=== PATIENT | male | born 1970 | race American Indian/Alaskan Native ===

== ENCOUNTER 2017-02-13 08:33 | Emergency (ER) | payer BC ==
[2017-02-13 08:52] VITALS: BP 206/137
[2017-02-13 09:24] LABS: Basophils % (Auto) 0.5 % (0.0-1.8); Hematocrit 38.4 % (35.5-45.6); Hemoglobin 12.5 gm/dl (11.8-15.2); Mean Corpuscular HGB Conc 33 % (32-34); Mean Corpuscular Hemoglobin 29 pg (28-32); Mean Corpuscular Volume 89 fl (84-94); Platelet Count 237 K/mm3 (140-440); Red Blood Count 4.31 M/mm3 (3.65-5.03); Red Cell Distribution Width 14.6 % (13.2-15.2); White Blood Count 6.5 K/mm3 (4.5-11.0)
[2017-02-13 09:52] LABS: Anion Gap 18 mmol/L; BUN/Creatinine Ratio 9; Blood Urea Nitrogen 14 mg/dL (9-20); Calcium 8.6 mg/dL (8.4-10.2); Carbon Dioxide 27 mmol/L (22-30); Chloride 100.7 mmol/L (98-107); Glucose 101 mg/dL (75-100); Potassium 3.4 mmol/L (3.6-5.0); Sodium 142 mmol/L (137-145)
== END 2017-02-13 11:05 | disposition left against medical advice (07) ==
LOC: ED 08:33
DX: R03.0 Elevated blood-pressure reading, without diagnosis of hypertension (principal); Z53.21 Procedure and treatment not carried out due to patient leaving prior to being seen by health care provider
CPT/HCPCS: 36415; 80048; 85025

== ENCOUNTER 2018-07-06 04:53 | Inpatient (IN) | payer SELFPAY ==
[2018-07-06] MEDS ORDERED: NORMODYNE IV ONE ×2 (05:48→05:49)
--- NOTE | 2018-07-06 07:18 | XRay Report ---
PROCEDURE: XR CHEST 1V AP TECHNIQUE: A portable upright view of the chest was submitted. HISTORY: hypertension COMPARISONS: None FINDINGS: The heart size and vascularity appear normal. The lungs are clear. The bones and soft tissues appear well maintained. IMPRESSION: No acute cardiopulmonary process.. This document is electronically signed by Girish Busby MD., July 06 2018 07:16:35 AM ET
[2018-07-06 07:30] LABS: Basophils % (Auto) 0.3 % (0.0-1.8); Eosinophils # (Auto) 0.1 K/mm3 (0.0-0.4); Eosinophils % (Auto) 0.9 % (0.0-4.3); Hematocrit 40.8 % (35.5-45.6); Hemoglobin 13.8 gm/dl (11.8-15.2); Lymphocytes # (Auto) 1.1 K/mm3 (1.2-5.4); Lymphocytes % (Auto) 12.8 % (13.4-35.0); Mean Corpuscular HGB Conc 34 % (32-34); Mean Corpuscular Volume 92 fl (84-94); Monocytes # (Auto) 0.7 K/mm3 (0.0-0.8); Monocytes % (Auto) 8.5 % (0.0-7.3); Platelet Count 267 K/mm3 (140-440); Red Blood Count 4.44 M/mm3 (3.65-5.03); Red Cell Distribution Width 14.5 % (13.2-15.2)
[2018-07-06 07:38] LABS: INR 0.98 (0.87-1.13)
[2018-07-06 07:39] LABS: Partial Thromboplastin Time 27.1 Sec. (24.2-36.6)
[2018-07-06 07:48] LABS: Calcium 9.3 mg/dL (8.4-10.2)
[2018-07-06 07:49] LABS: Creatine Kinase MB 3.4 ng/mL (0.0-4.0)
[2018-07-06 07:51] LABS: Alanine Aminotransferase 17 units/L (7-56); Albumin 4.5 g/dL (3.9-5)
[2018-07-06 07:53] LABS: Bilirubin,Direct < 0.2 mg/dL (0-0.2)
[2018-07-06] MEDS ORDERED: APRESOLINE IV ONE (07:58)
--- NOTE | 2018-07-06 08:03 | Emergency Department Report ---
ED General Adult HPI - General Chief complaint: High BP Stated complaint: THROAT CLOSING (HTN SYMPTOMS) Time Seen by Provider: 07/06/18 06:59 Source: EMS Mode of arrival: Stretcher Limitations: No Limitations - History of Present Illness Initial comments: This is a 48 year old man with very limited medical literacy. He is relating his elevated blood pressure to his failure to drink enough water. Does not complain of polyuria or polydipsia. Apparently had some throat tightness had some weight but does not complain of that now. He had no focal neurological change nor any shortness of breath. He denied chest pain. He denies a history of renal insufficiency. He states he had previously been treated for hypertension. He is apparently not taking any medication at this point. He was previously prescribed lisinopril and hydrochlorothiazide. -: Gradual, month(s) Location: neck Radiation: non-radiation Severity scale (0 -10): 0 Quality: other Consistency: now resolved Improves with: none Worsens with: none Associated Symptoms: denies other symptoms Treatments Prior to Arrival: none - Related Data Previous Rx's Medication Instructions Recorded Last Taken Type Lisinopril [Zestril TAB] 20 mg PO QDAY #30 tablet 05/17/13 Unknown Rx hydroCHLOROthiazide 12.5 mg PO DAILY #30 capsule 05/17/13 Unknown Rx [Hydrochlorothiazide] methOCARBAMOL [Robaxin] 500 mg PO BID #14 tab 05/17/13 Unknown Rx oxyCODONE /ACETAMINOPHEN [Percocet 1 tab PO Q6HR PRN #14 tablet 05/17/13 Unknown Rx 5/325 mg] Allergies Allergy/AdvReac Type Severity Reaction Status Date / Time grass pollen Allergy Shortness Verified 07/06/18 05:06 of Breath ED Review of Systems ROS: Stated complaint: THROAT CLOSING (HTN SYMPTOMS) Other details as noted in HPI Constitutional: denies: chills, fever Eyes: denies: eye pain, eye discharge, vision change ENT: denies: ear pain, throat pain Respiratory: denies: cough, shortness of breath, wheezing Cardiovascular: denies: chest pain, palpitations Endocrine: no symptoms reported Gastrointestinal: denies: abdominal pain, nausea, diarrhea Genitourinary: denies: urgency, dysuria Musculoskeletal: as per HPI. denies: back pain, joint swelling, arthralgia Skin: denies: rash, lesions Neurological: denies: headache, weakness, paresthesias Psychiatric: denies: anxiety, depression Hematological/Lymphatic: denies: easy bleeding, easy bruising ED Past Medical Hx - Past Medical History Hx Hypertension: Yes Additional medical history: Medical noncompliance - Social History Smoking Status: Never Smoker Substance Use Type: None - Medications Home Medications: Home Medications Medication Instructions Recorded Confirmed Last Taken Type Lisinopril [Zestril TAB] 20 mg PO QDAY #30 tablet 05/17/13 Unknown Rx hydroCHLOROthiazide 12.5 mg PO DAILY #30 capsule 05/17/13 Unknown Rx [Hydrochlorothiazide] methOCARBAMOL [Robaxin] 500 mg PO BID #14 tab 05/17/13 Unknown Rx oxyCODONE /ACETAMINOPHEN [Percocet 1 tab PO Q6HR PRN #14 tablet 05/17/13 Unknown Rx 5/325 mg] ED Physical Exam - General Limitations: No Limitations General appearance: alert, in no apparent distress - Head Head exam: Present: atraumatic, normocephalic - Eye Eye exam: Present: normal appearance, PERRL, EOMI. Absent: scleral icterus - ENT ENT exam: Present: mucous membranes moist - Neck Neck exam: Present: normal inspection, full ROM. Absent: tenderness, meningismus, lymphadenopathy, thyromegaly - Respiratory Respiratory exam: Present: normal lung sounds bilaterally. Absent: respiratory distress - Cardiovascular Cardiovascular Exam: Present: regular rate, normal rhythm. Absent: systolic murmur, diastolic murmur, rubs, gallop - GI/Abdominal GI/Abdominal exam: Present: soft, normal bowel sounds. Absent: distended, tenderness, guarding, rebound, rigid - Rectal Rectal exam: Present: deferred - Extremities Exam Extremities exam: Present: normal inspection - Back Exam Back exam: Present: normal inspection - Neurological Exam Neurological exam: Present: alert, oriented X3, CN II-XII intact. Absent: motor sensory deficit - Psychiatric Psychiatric exam: Present: normal affect, normal mood - Skin Skin exam: Present: warm, dry, intact, normal color. Absent: rash ED Course Vital Signs 07/06/18 07/06/18 07/06/18 05:09 05:12 05:30 Temperature 97.2 F L Pulse Rate 92 H 91 H Respiratory 18 18 24 Rate Blood Pressure 194/143 Blood Pressure 202/143 [Left] O2 Sat by Pulse 97 97 97 Oximetry 07/06/18 07/06/18 07/06/18 05:44 06:00 06:05 Temperature Pulse Rate 86 81 80 Respiratory 16 Rate Blood Pressure 189/134 194/143 Blood Pressure 194/143 [Left] O2 Sat by Pulse 99 Oximetry 07/06/18 07/06/18 06:30 07:00 Temperature Pulse Rate 80 76 Respiratory 15 20 Rate Blood Pressure 195/137 216/149 Blood Pressure [Left] O2 Sat by Pulse 98 98 Oximetry - Reevaluation(s) Reevaluation #1: resting comfortably and asymptomatic even with a systolic blood pressure in the 150s. He will be given additional blood pressure management here in the emergency department. I do not think he will likely require a drip. His blood pressure will be further monitored. He is admitted by Dr. Glover to the hospitalist service. 07/06/18 08:05 ED Medical Decision Making - Lab Data Result diagrams: 07/06/18 07:12 07/06/18 07:12 Laboratory Results - last 24 hr 07/06/18 07/06/18 07/06/18 07:12 07:12 07:12 WBC 8.6 RBC 4.44 Hgb 13.8 Hct 40.8 MCV 92 MCH 31 MCHC 34 RDW 14.5 Plt Count 267 Lymph % (Auto) 12.8 L Andrews % (Auto) 8.5 H Eos % (Auto) 0.9 Baso % (Auto) 0.3 Lymph # 1.1 L Andrews # 0.7 Eos # 0.1 Baso # 0.0 Seg Neutrophils % 77.5 H Seg Neutrophils # 6.7 PT 13.6 INR 0.98 APTT 27.1 Sodium 139 Potassium 3.9 Chloride 96.8 L Carbon Dioxide 29 Anion Gap 17 BUN 17 Creatinine 1.9 H Estimated GFR 46 BUN/Creatinine Ratio 9 Glucose 112 H Calcium 9.3 Magnesium Total Bilirubin Direct Bilirubin AST ALT Alkaline Phosphatase Total Creatine Kinase CK-MB (CK-2) CK-MB (CK-2) Rel Index Troponin T NT-Pro-B Natriuret Pep Total Protein Albumin Albumin/Globulin Ratio 07/06/18 07:12 WBC RBC Hgb Hct MCV MCH MCHC RDW Plt Count Lymph % (Auto) Andrews % (Auto) Eos % (Auto) Baso % (Auto) Lymph # Andrews # Eos # Baso # Seg Neutrophils % Seg Neutrophils # PT INR APTT Sodium Potassium Chloride Carbon Dioxide Anion Gap BUN Creatinine Estimated GFR BUN/Creatinine Ratio Glucose Calcium Magnesium 1.90 Total Bilirubin 0.30 Direct Bilirubin < 0.2 AST 17 ALT 17 Alkaline Phosphatase 68 Total Creatine Kinase 249 H CK-MB (CK-2) 3.4 CK-MB (CK-2) Rel Index 1.3 Troponin T < 0.010 NT-Pro-B Natriuret Pep 39.87 Total Protein 8.4 H Albumin 4.5 Albumin/Globulin Ratio 1.2 - EKG Data -: EKG Interpreted by Me EKG shows normal: sinus rhythm, axis, intervals, QRS complexes, ST-T waves Rate: normal - EKG Data Interpretation: no acute changes 07/06/18 08:08 pending Critical care attestation.: If time is entered above; I have spent that time in minutes in the direct care of this critically ill patient, excluding procedure time. ED Disposition Clinical Impression: Accelerated hypertension, Renal insufficiency Disposition: OP ADMIT IP TO THIS HOSP Is pt being admited?: Yes Does the pt Need Aspirin: Yes Condition: Stable Instructions: Hypertension (ED) Time of Disposition: 08:08
[2018-07-06] MEDS ORDERED: ASPIRIN PO ONE (08:09)
--- NOTE | 2018-07-06 11:18 | Progress Note ---
Hospitalist Physical - Constitutional Vitals: Temp Pulse Resp BP Pulse Ox 97.2 F L 90 25 H 205/135 99 07/06/18 05:09 07/06/18 08:30 07/06/18 08:30 07/06/18 08:30 07/06/18 08:30 Results - Labs CBC & Chem 7: 07/06/18 07:12 07/06/18 07:12 Labs: Laboratory Last Values WBC 8.6 K/mm3 (4.5-11.0) 07/06/18 07:12 RBC 4.44 M/mm3 (3.65-5.03) 07/06/18 07:12 Hgb 13.8 gm/dl (11.8-15.2) 07/06/18 07:12 Hct 40.8 % (35.5-45.6) 07/06/18 07:12 MCV 92 fl (84-94) 07/06/18 07:12 MCH 31 pg (28-32) 07/06/18 07:12 MCHC 34 % (32-34) 07/06/18 07:12 RDW 14.5 % (13.2-15.2) 07/06/18 07:12 Plt Count 267 K/mm3 (140-440) 07/06/18 07:12 Lymph % (Auto) 12.8 % (13.4-35.0) L 07/06/18 07:12 [place] % (Auto) 8.5 % (0.0-7.3) H 07/06/18 07:12 Eos % (Auto) 0.9 % (0.0-4.3) 07/06/18 07:12 Baso % (Auto) 0.3 % (0.0-1.8) 07/06/18 07:12 Lymph # 1.1 K/mm3 (1.2-5.4) L 07/06/18 07:12 Rowan # 0.7 K/mm3 (0.0-0.8) 07/06/18 07:12 Eos # 0.1 K/mm3 (0.0-0.4) 07/06/18 07:12 Baso # 0.0 K/mm3 (0.0-0.1) 07/06/18 07:12 Seg Neutrophils % 77.5 % (40.0-70.0) H 07/06/18 07:12 Seg Neutrophils # 6.7 K/mm3 (1.8-7.7) 07/06/18 07:12 PT 13.6 Sec. (12.2-14.9) 07/06/18 07:12 INR 0.98 (0.87-1.13) 07/06/18 07:12 APTT 27.1 Sec. (24.2-36.6) 07/06/18 07:12 Sodium 139 mmol/L (137-145) 07/06/18 07:12 Potassium 3.9 mmol/L (3.6-5.0) 07/06/18 07:12 Chloride 96.8 mmol/L (98-107) L 07/06/18 07:12 Carbon Dioxide 29 mmol/L (22-30) 07/06/18 07:12 Anion Gap 17 mmol/L 07/06/18 07:12 BUN 17 mg/dL (9-20) 07/06/18 07:12 Creatinine 1.9 mg/dL (0.8-1.5) H 07/06/18 07:12 Estimated GFR 46 ml/min 07/06/18 07:12 BUN/Creatinine Ratio 9 % 07/06/18 07:12 Glucose 112 mg/dL (75-100) H 07/06/18 07:12 Calcium 9.3 mg/dL (8.4-10.2) 07/06/18 07:12 Magnesium 1.90 mg/dL (1.7-2.3) 07/06/18 07:12 Total Bilirubin 0.30 mg/dL (0.1-1.2) 07/06/18 07:12 Direct Bilirubin < 0.2 mg/dL (0-0.2) 07/06/18 07:12 AST 17 units/L (5-40) 07/06/18 07:12 ALT 17 units/L (7-56) 07/06/18 07:12 Alkaline Phosphatase 68 units/L (35-129) 07/06/18 07:12 Total Creatine Kinase 249 units/L (55-170) H 07/06/18 07:12 CK-MB (CK-2) 3.4 ng/mL (0.0-4.0) 07/06/18 07:12 CK-MB (CK-2) Rel Index 1.3 (0-4) 07/06/18 07:12 Troponin T < 0.010 ng/mL (0.00-0.029) 07/06/18 07:12 NT-Pro-B Natriuret Pep 39.87 pg/mL (0-450) 07/06/18 07:12 Total Protein 8.4 g/dL (6.3-8.2) H 07/06/18 07:12 Albumin 4.5 g/dL (3.9-5) 07/06/18 07:12 Albumin/Globulin Ratio 1.2 % 07/06/18 07:12
--- NOTE | 2018-07-06 11:22 | History and Physical Report ---
History of Present Illness Date of examination: 07/06/18 Date of admission: 07/06/18 08:09 Chief complaint: Patient reported some throat tightness prior to admission but no complaints now. Patient denies any tongue swelling. No difficulty breathing. Patient apparently took previous medication of lisinopril. Patient has been noncompliant with his blood pressure medications. He denies any chest pain or shortness of breath. No headache or visual disturbances. Past History Past Medical History: hypertension Past Surgical History: No surgical history Social history: no significant social history Family history: no significant family history Medications and Allergies Allergies Allergy/AdvReac Type Severity Reaction Status Date / Time grass pollen Allergy Shortness Verified 07/06/18 05:06 of Breath Home Medications Medication Instructions Recorded Confirmed Last Taken Type Lisinopril [Zestril TAB] 20 mg PO QDAY #30 tablet 05/17/13 Unknown Rx hydroCHLOROthiazide 12.5 mg PO DAILY #30 capsule 05/17/13 Unknown Rx [Hydrochlorothiazide] methOCARBAMOL [Robaxin] 500 mg PO BID #14 tab 05/17/13 Unknown Rx oxyCODONE /ACETAMINOPHEN [Percocet 1 tab PO Q6HR PRN #14 tablet 05/17/13 Unknown Rx 5/325 mg] Active Meds: Active Medications Labetalol HCl (Normodyne) 400 mg PO TID BRANDT Review of Systems All systems: negative Exam - Constitutional Vitals: Temp Pulse Resp BP Pulse Ox 97.2 F L 90 25 H 205/135 99 07/06/18 05:09 07/06/18 08:30 07/06/18 08:30 07/06/18 08:30 07/06/18 08:30 General appearance: Present: no acute distress, well-nourished - EENT Eyes: Present: PERRL ENT: hearing intact, clear oral mucosa - Neck Neck: Present: supple, normal ROM - Respiratory Respiratory effort: normal Respiratory: bilateral: CTA - Cardiovascular Heart Sounds: Present: S1 & S2. Absent: rub, click - Extremities Extremities: pulses symmetrical, No edema Peripheral Pulses: within normal limits - Abdominal General gastrointestinal: Present: soft, non-tender, non-distended, normal bowel sounds Male genitourinary: Present: normal - Integumentary Integumentary: Present: clear, warm, dry - Musculoskeletal Musculoskeletal: gait normal, strength equal bilaterally - Psychiatric Psychiatric: appropriate mood/affect, intact judgment & insight - Neurologic Neurologic: CNII-XII intact, moves all extremities Results - Labs CBC & Chem 7: 07/06/18 07:12 07/06/18 07:12 Labs: Laboratory Last Values WBC 8.6 K/mm3 (4.5-11.0) 07/06/18 07:12 RBC 4.44 M/mm3 (3.65-5.03) 07/06/18 07:12 Hgb 13.8 gm/dl (11.8-15.2) 07/06/18 07:12 Hct 40.8 % (35.5-45.6) 07/06/18 07:12 MCV 92 fl (84-94) 07/06/18 07:12 MCH 31 pg (28-32) 07/06/18 07:12 MCHC 34 % (32-34) 07/06/18 07:12 RDW 14.5 % (13.2-15.2) 07/06/18 07:12 Plt Count 267 K/mm3 (140-440) 07/06/18 07:12 Lymph % (Auto) 12.8 % (13.4-35.0) L 07/06/18 07:12 [place] % (Auto) 8.5 % (0.0-7.3) H 07/06/18 07:12 Eos % (Auto) 0.9 % (0.0-4.3) 07/06/18 07:12 Baso % (Auto) 0.3 % (0.0-1.8) 07/06/18 07:12 Lymph # 1.1 K/mm3 (1.2-5.4) L 07/06/18 07:12 [place] # 0.7 K/mm3 (0.0-0.8) 07/06/18 07:12 Eos # 0.1 K/mm3 (0.0-0.4) 07/06/18 07:12 Baso # 0.0 K/mm3 (0.0-0.1) 07/06/18 07:12 Seg Neutrophils % 77.5 % (40.0-70.0) H 07/06/18 07:12 Seg Neutrophils # 6.7 K/mm3 (1.8-7.7) 07/06/18 07:12 PT 13.6 Sec. (12.2-14.9) 07/06/18 07:12 INR 0.98 (0.87-1.13) 07/06/18 07:12 APTT 27.1 Sec. (24.2-36.6) 07/06/18 07:12 Sodium 139 mmol/L (137-145) 07/06/18 07:12 Potassium 3.9 mmol/L (3.6-5.0) 07/06/18 07:12 Chloride 96.8 mmol/L (98-107) L 07/06/18 07:12 Carbon Dioxide 29 mmol/L (22-30) 07/06/18 07:12 Anion Gap 17 mmol/L 07/06/18 07:12 BUN 17 mg/dL (9-20) 07/06/18 07:12 Creatinine 1.9 mg/dL (0.8-1.5) H 07/06/18 07:12 Estimated GFR 46 ml/min 07/06/18 07:12 BUN/Creatinine Ratio 9 % 07/06/18 07:12 Glucose 112 mg/dL (75-100) H 07/06/18 07:12 Calcium 9.3 mg/dL (8.4-10.2) 07/06/18 07:12 Magnesium 1.90 mg/dL (1.7-2.3) 07/06/18 07:12 Total Bilirubin 0.30 mg/dL (0.1-1.2) 07/06/18 07:12 Direct Bilirubin < 0.2 mg/dL (0-0.2) 07/06/18 07:12 AST 17 units/L (5-40) 07/06/18 07:12 ALT 17 units/L (7-56) 07/06/18 07:12 Alkaline Phosphatase 68 units/L (35-129) 07/06/18 07:12 Total Creatine Kinase 249 units/L (55-170) H 07/06/18 07:12 CK-MB (CK-2) 3.4 ng/mL (0.0-4.0) 07/06/18 07:12 CK-MB (CK-2) Rel Index 1.3 (0-4) 07/06/18 07:12 Troponin T < 0.010 ng/mL (0.00-0.029) 07/06/18 07:12 NT-Pro-B Natriuret Pep 39.87 pg/mL (0-450) 07/06/18 07:12 Total Protein 8.4 g/dL (6.3-8.2) H 07/06/18 07:12 Albumin 4.5 g/dL (3.9-5) 07/06/18 07:12 Albumin/Globulin Ratio 1.2 % 07/06/18 07:12 Assessment and Plan Assessment and plan: Accelerated hypertension. We will start labetalol. We'll hold on AMITA inhibitor given the presenting complaint of throat tightness.? Angioedema. Chronic kidney disease. Patient with a creatinine of 1.05 February 2017. Patient appears to be at his baseline. Recheck BMP in the morning.
[2018-07-06 11:29] VITALS: BP 182/118
[2018-07-06 12:44] LABS: Bilirubin,Urine NEG (Negative); Blood,Urine NEG (Negative); Color,Urine Straw (Yellow); Protein,Urine <15 mg/dL mg/dL (Negative); Urobilinogen,Urine < 2.0 mg/dL (<2.0); WBC,Urine < 1.0 /HPF (0.0-6.0)
[2018-07-06 12:52] LABS: Amphetamine Screen,Urine PRESUMPTIVE NEGATIVE; Benzodiazepines Screen,Urine PRESUMPTIVE NEGATIVE; Cannabinoid Screen,Urine PRESUMPTIVE NEGATIVE; Cocaine Screen,Urine PRESUMPTIVE NEGATIVE; Methadone Screen,Urine PRESUMPTIVE NEGATIVE; Opiate Screen,Urine PRESUMPTIVE NEGATIVE
[2018-07-06] MEDS ORDERED: AFLURIA QUAD 2018-2019 SYRINGE IM ONE (14:00)
[2018-07-06] MEDS ORDERED: NORMODYNE PO SCH (14:00)
[2018-07-06] MEDS ORDERED: SODIUM CHLORIDE FLUSH SYRINGE 10 ML IV PRN (14:48)
[2018-07-06] MEDS ORDERED: ZOFRAN IV PRN (14:48)
[2018-07-06] MEDS ORDERED: TYLENOL PO PRN (14:48)
[2018-07-06] MEDS ORDERED: CARDIZEM PO SCH (18:00)
[2018-07-06] MEDS ORDERED: SODIUM CHLORIDE FLUSH SYRINGE 10 ML IV SCH (22:00)
[2018-07-07] MEDS ORDERED: HCTZ PO SCH (10:00)
--- NOTE | 2018-07-15 09:56 | Addendum Note ---
- Addendum Date: 08/04/18 Note: Unfortunately, the patient left AMA. Nurse reports patient left the floor ambulatory in stable condition. No other details provided.
== END 2018-07-06 16:10 | disposition left against medical advice (07) | DRG 684 ==
LOC: ED 04:53 → 3A 08:09
PROVIDERS: ADMIT Hospitalist; ATTEND Hospitalist
DX: I12.9 Hypertensive chronic kidney disease with stage 1 through stage 4 chronic kidney disease, or unspecified chronic kidney disease (principal); N18.9 Chronic kidney disease, unspecified; Z91.048 Other nonmedicinal substance allergy status; Z53.21 Procedure and treatment not carried out due to patient leaving prior to being seen by health care provider
CPT/HCPCS: 36415; 71045; 80048; 80076; 80307; 81001; 82550; 82553; 83735; 83880; 84484; 85025; 85610; 85730; 90686; 93005; 93010; 96374; 96375; G0378; J0360

== ENCOUNTER 2021-10-18 17:52 | Emergency (ER) | payer SELFPAY ==
[2021-10-18] MEDS ORDERED: cloNIDine 0.1 MG TAB PO ONE (18:55)
--- NOTE | 2021-10-18 19:00 | Emergency Department Report ---
ED General Adult HPI - General Chief complaint: High BP Stated complaint: HTN/BLURR VISION Time Seen by Provider: 10/18/21 18:47 Source: EMS Mode of arrival: Ambulatory Limitations: No Limitations - History of Present Illness Initial comments: 51 yo M with no history of hypertension came in with blurry vision associated with elevated blood pressure at 190/106 at his primary doctor's office. For this reason patient was sent to the emergency room to be evaluated. Patient denies having any history of high blood pressure or take any prescribed medicat ion. Patient also reports posterior headache. No upper or lower limb weakness reported. No numbness or tingling reported. No other modifying or associated factors reported. Severity scale (0 -10): 8 - Related Data Previous Rx's Medication Instructions Recorded Last Taken Type hydroCHLOROthiazide 12.5 mg PO DAILY #30 capsule 05/17/13 Unknown Rx [Hydrochlorothiazide] methOCARBAMOL [Robaxin] 500 mg PO BID #14 tab 05/17/13 Unknown Rx oxyCODONE /ACETAMINOPHEN [Percocet 1 tab PO Q6HR PRN #14 tablet 05/17/13 Unknown Rx 5/325 mg] lisinopriL [Zestril TAB] 20 mg PO QDAY #30 tablet 10/18/21 Unknown Rx Allergies Allergy/AdvReac Type Severity Reaction Status Date / Time grass pollen Allergy Shortness Verified 10/18/21 18:22 of Breath ED Review of Systems ROS: Stated complaint: HTN/BLURR VISION Other details as noted in HPI Comment: All other systems reviewed and negative Eyes: vision change Cardiovascular: other (Hypertensive crisis) Neurological: headache (Posterior) ED Past Medical Hx - Past Medical History Previous Medical History?: Yes Hx Hypertension: Yes Additional medical history: Medical noncompliance - Social History Smoking Status: Never Smoker - Medications Home Medications: Home Medications Medication Instructions Recorded Confirmed Last Taken Type hydroCHLOROthiazide 12.5 mg PO DAILY #30 capsule 05/17/13 Unknown Rx [Hydrochlorothiazide] methOCARBAMOL [Robaxin] 500 mg PO BID #14 tab 05/17/13 Unknown Rx oxyCODONE /ACETAMINOPHEN [Percocet 1 tab PO Q6HR PRN #14 tablet 05/17/13 Unk nown Rx 5/325 mg] lisinopriL [Zestril TAB] 20 mg PO QDAY #30 tablet 10/18/21 Unknown Rx ED Physical Exam - General Limitations: No Limitations General appearance: alert, in no apparent distress - Head Head exam: Present: normal inspection - Eye Eye exam: Present: normal appearance, PERRL, EOMI Pupils: Present: normal accommodation - ENT ENT exam: Present: normal exam, normal orophraynx, mucous membranes dry - Neck Neck exam: Present: normal inspection, full ROM. Absent: tenderness, lymphadenopathy - Respiratory Respiratory exam: Present: normal lung sounds bilaterally. Absent: respiratory distress, accessory muscle use - Cardiovascular Cardiovascular Exam: Present: regular rate, normal rhythm, normal heart sounds - GI/Abdominal GI/Abdominal exam: Present: soft, normal bowel sounds. Absent: distended, tenderness - Extremities Exam Extremities exam: Present: normal inspection, full ROM, normal capillary refill. Absent: tenderness, pedal edema, joint swelling - Back Exam Back exam: Present: normal inspection, full ROM. Absent: tenderness, CVA tenderness (R), CVA tenderness (L) - Neurological Exam Neurological exam: Present: alert, oriented X3, CN II-XII intact - Psychiatric Psychiatric exam: Present: normal affect, normal mood - Skin Skin exam: Present: warm, normal color ED Course Vital Signs 10/18/21 10/18/21 10/18/21 18:17 19:37 19:39 Temperature 97.8 F Pulse Rate 95 H 93 H 93 H Respiratory 16 Rate Blood Pressure 254/126 254/162 Blood Pressure 249/160 [Left] O2 Sat by Pulse 100 Oximetry 10/18/21 20:25 Temperature Pulse Rate 90 Respiratory Rate Blood Pressure 223/159 Blood Pressure [Left] O2 Sat by Pulse Oximetry - Reevaluation(s) Reevaluation #1: 10/18/21 19:02 here with hypertensive crisis with blurred vision and posterior headache-- this is likely as a result or related to the hypertensive crisis but could not be limited to this alone so will rule out CVA by getting CT head, any cardiac involvement by checking troponin, BNP and CXR, will also check thyroid panel for any abnormality, and check routine labs that include CBC, CMP and UA and UDS for any infectious process or electrolyte abnormality-- For his hypertensive crisis with noted blood pressure at 154/1 62 mmHg we will go ahead and give labetalol 20 mg IV x1, clonidine 0.1 mg p.o. and Ativan 1 mg IV x1 for anxiety. Reevaluation #2: 10/18/21 19:56 pt reevaluated after the above Labetolol and Clonidine but with repeated blood pressure at 246/166 mgHg so given hydralazine 20 mg IV x1 and Ativan 1 mg IV x1--we reevaluated patient in 30 minutes. We also go ahead and give 2 mg of morphine for the headache. 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 Otherwise, no acute hemorrhage, mass effect, midline shift, hydrocephalus, or acute, large territorial infarct. No signs of significant atrophy or chronic infarct. There are minimal areas of decreased attenuation in the white matter of the cerebral hemispheres. These are nonspecific findings and may be related to microangiopathy (hype rtension, diabetes, atherosclerosis), given the patient's age. CRANIOCERVICAL JUNCTION: No significant abnormality. ORBITS: No significant abnormality of visualized orbits. SINUSES / MASTOIDS: Mild mucosal thickening seen in the mastoids. ADDITIONAL FINDINGS: None. IMPRESSION: 1. No focal mass, hemorrhage, hydrocephalus, or acute, large territorial infarct. Follow-up with diffusion imaging by MRI, as clinically warranted. Critical care attestation.: If time is entered above; I have spent that time in minutes in the direct care of this critically ill patient, excluding procedure time. ED Disposition Clinical Impression: Hypertensive crisis, Blurred vision, bilateral Headache Qualifiers: Headache type: other headache syndrome Qualified Code(s): G44.89 - Other headache syndrome Disposition: 01 HOME / SELF CARE / HOMELESS Is pt being admited?: No Does the pt Need Aspirin: No Condition: Good Instructions: Blurred Vision, Adult, Hypertension, Adult, [id number]-[id number]-[id number], Preventing Hypertension, Managing Your Hypertension, Hypertension (ED) Additional Instructions: It is very important that you resume your antihypertensive medication lisinopril and hydrochlorothiazide as prescribed by your primary doctor to continue to help your blood pressure Please call and follow-up with your primary doctor in the next 3 to 5 days for progress Please do not hesitate to call or return to emergency room if your symptoms worsen Prescriptions: lisinopriL [Zestril TAB] 20 mg PO QDAY #30 tablet Referrals: DANO HERBERT MD [Referring] - 3-5 Days Time of Disposition: 20:52
[2021-10-18] MEDS ORDERED: hydrALAZINE 20 MG/1 ML INJ IV ONE (19:55)
[2021-10-18] MEDS ORDERED: LORazepam 2 MG/ML VIAL IV ONE (19:55)
[2021-10-18] MEDS ORDERED: MORPHINE 2 MG/1 ML INJ IV ONE (19:58)
[2021-10-18 20:11] LABS: Basophils % (Auto) 0.7 % (0.0-1.8); Eosinophils # (Auto) 0.2 K/mm3 (0.0-0.4); Eosinophils % (Auto) 2.8 % (0.0-4.3); Hematocrit 37.6 % (35.5-45.6); Hemoglobin 12.3 gm/dl (11.8-15.2); Lymphocytes # (Auto) 1.1 K/mm3 (1.2-5.4); Lymphocytes % (Auto) 19.8 % (13.4-35.0); Mean Corpuscular HGB Conc 33 % (32-34); Mean Corpuscular Volume 92 fl (84-94); Monocytes # (Auto) 0.4 K/mm3 (0.0-0.8); Monocytes % (Auto) 7.4 % (0.0-7.3); Platelet Count 285 K/mm3 (140-440); Red Blood Count 4.09 M/mm3 (3.65-5.03); Red Cell Distribution Width 15.1 % (13.2-15.2)
[2021-10-18 20:14] LABS: Alanine Aminotransferase 9 units/L (7-56); Albumin 4.2 g/dL (3.9-5); BUN/Creatinine Ratio 7; Blood Urea Nitrogen 19 mg/dL (9-20); Calcium 8.9 mg/dL (8.4-10.2); Hemolysis Index 0
[2021-10-18 20:23] LABS: INR 1.01 (0.87-1.13); Partial Thromboplastin Time 30.1 Sec. (24.2-36.6)
--- NOTE | 2021-10-18 20:26 | Cat Scan Report ---
CT head/brain wo con INDICATION / CLINICAL INFORMATION: 51 years Male; headache and blurred vision. TECHNIQUE: Routine CT head without contrast. All CT scans at this location are performed using CT dos e reduction for ALARA by means of automated exposure control. COMPARISON: None. FINDINGS: BRAIN / INTRACRANIAL CONTENTS: Prominent lacunar type infarcts seen in the left gangliocapsular regio [id number] without diffusion imaging by MRI. Otherwise, no acute hemorrhage, mass effect, midline shift, hydrocephalus, or acute, large territori al infarct. No signs of significant atrophy or chronic infarct. There are minimal areas of decreased attenuation in the white matter of the cerebral hemispheres. The se are nonspecific findings and may be related to microangiopathy (hypertension, diabetes, atheroscle rosis), given the patient's age. CRANIOCERVICAL JUNCTION: No significant abnormality. ORBITS: No significant abnormality of visualized orbits. SINUSES / MASTOIDS: Mild mucosal thickening seen in the mastoids. ADDITIONAL FINDINGS: None. IMPRESSION: 1. No focal mass, hemorrhage, hydrocephalus, or acute, large territorial infarct. Follow-up with diff usion imaging by MRI, as clinically warranted. Signer Name: Alexandre Block MD, III Signed: 10/18/2021 8:22 PM Workstation Name: [id number]
[2021-10-18 20:48] LABS: Free T4 (Free Thyroxine) 1.17 ng/dL (0.76-1.46)
[2021-10-18 22:05] VITALS: BP 115/61
--- NOTE | 2021-10-19 11:27 | Electrocardiograph Report ---
[facility] Test Date: 2021-10-18 Test Time: 21:13:09 Pat Name: MARIPOSA MIMS Department: Room: Gender: M Interior Decorator Painting: RKCAROLYNU : 1970 Requested By: LIZ HERNANDEZ Order Number: [id number] Reading MD: Greg Cruz Measurements Intervals [place] Rate: 67 P: 59 AK: 148 QRS: 15 QRSD: 93 T: 28 QT: 528 QTc: 557 Interpretive Statements Gender not entered, assumed to be male for purpose of ECG interpretation Sinus rhythm Probable left atrial enlargement LVH with secondary repolarization abnormality Prolonged QT interval No previous ECG available for comparison Electronically Signed On 10-19-2021 11:27:23 EDT by Greg Cruz
== END 2021-10-18 21:30 | disposition home or self-care (01) ==
LOC: ED 17:52
DX: H53.8 Other visual disturbances (principal); I16.9 Hypertensive crisis, unspecified; R51.9 Headache, unspecified; Z79.899 Other long term (current) drug therapy
CPT/HCPCS: 36415; 70450; 80053; 83880; 84439; 84443; 84484; 85025; 85610; 85730; 93005; 96374; 96375; 99284; J0360; J2060; J2270; J3490; 80320; G0480